=== PATIENT | female | born 1935 | race American Indian/Alaskan Native ===

== ENCOUNTER 2021-06-09 16:03 | Inpatient (IN) | payer OTHER, MEDICARE ==
[~2021-06-09 16:03] MED LIST: ATROPINE 0.1% (1 MG/10 ML) CARDIAC SYRINGE ONE; DOPamine DRIP 800 MG/D5W 250ML PreMix IV ONE; EPINEPHrine 1 MG/10 ML SYRINGE ONE; LIDOCAINE PF 100 MG/5 ML (CARDIAC SYRINGE) IV ONE; LIDOCAINE/D5W 2 GM/500 ML (0.4%) DRIP IV ONE; MAGNESIUM SULFATE 1 GM/2ML (4 MEQ/1ML) INJ ONE; SODIUM BICARB 8.4% 50 MEQ/50 ML SYRINGE IV ONE
[2021-06-09] MEDS ORDERED: NORepinephrine/NS 8 MG-250 ML 8 MG/250 ML INFUS..BTL IV ONE (16:30)
[2021-06-09] MEDS ORDERED: DOPamine 800 MG/D5W 250ML 800 MG/250 ML BAG IV ONE (16:43)
[2021-06-09] MEDS ORDERED: LIDOCAINE DRIP 2,000 MG/500 ML BAG IV ONE (16:44)
--- NOTE | 2021-06-09 16:52 | Emergency Department Report ---
HPI - General Time Seen by Provider: 06/09/21 16:41 - HPI HPI: Room 2 The patient is an 86-year-old female presenting with a chief complaint of cardiac arrest. Per EMS they received a call initially for the patient having fallen at home. EMS was called and arrived on scene to find the patient awake and bradycardic. While EMS was there at approximately 15:15 the patient became unresponsive. The patient was found to be pulseless and ACLS protocols were initiated. Monitor showed PEA. The patient was bagged via BVM and administered 1 round of epinephrine prior to arrival to the ED. Upon arrival to the ED the patient was intubated by myself using a 7.0 ET tube with a glide scope, ACLS protocols were continued with eventual return of spontaneous circulation ED Past Medical Hx - Past Medical History Hx Hypertension: Yes Hx Congestive Heart Failure: Yes Hx Diabetes: Yes - Family History Family history: no significant - Social History Smoking Status: Unknown if ever smoked - Medications Home Medications: Home Medications Medication Instructions Recorded Confirmed Last Taken Type FLUoxetine [PROzac] 20 mg PO QDAY 06/09/21 06/09/21 Unknown History Furosemide [Lasix] 40 mg PO DAILY 06/09/21 06/09/21 Unknown History Metformin HCl [metFORMIN] 1,000 mg PO BID 06/09/21 06/09/21 Unknown History Nitroglycerin [Nitrostat] 0.4 mg SL Q5M 06/09/21 06/09/21 Unknown History Potassium Citrate [Potassium 10 meq PO DAILY 06/09/21 06/09/21 Unknown History Citrate ER] traZODone [Desyrel] 50 mg PO BID 06/09/21 06/09/21 Unknown History ED Review of Systems ROS: Stated complaint: CARDIAC ARREST Other details as noted in HPI Comment: Unobtainable due to pts medical conditions Physical Exam - Physical Exam Physical Exam: GENERAL: The patient is well-developed well-nourished male lying on stretcher being bagged via BVM and receiving chest compressions from EMS. [] HEENT: Normocephalic. Atraumatic. NECK: Supple. Trachea midline CHEST/LUNGS: No spontaneous respirations. Breath sounds equal bilaterally after intubation by myself HEART/CARDIOVASCULAR: No heart sounds. Asystole on the monitor ABDOMEN: Abdomen is soft, nontender. Patient has normal bowel sounds. There is no abdominal distention. SKIN: There is no rash. There is no edema. There is no diaphoresis. NEURO: GCS 3 T MUSCULOSKELETAL:There is no evidence of acute injury. ED Course - Consultations Consultation #1: 06/09/21 17:54 Nephrology paged 06/09/21 18:32 Case discussed with basket assembler Dr. Mccloud - Central Line Placement Right Femoral Consent Obtained: emergent situation Time Out Performed: No Patient Placed on Monitor/Pulse Ox: No MD Prep: mask, gown, gloves Central Line Prep: Chlorhexidine scrub Local Anesthesia Used: Lidocaine 1% Amount of Anesthesia Used (mls): 5 Ultrasound Used for Placement: No Central Line Lumen Inserted: triple Reason for Insertion: High Alert Medication Bloods Obtained for Lab: No Central Line Position: good blood return, all ports aspirated, flus Dressing Applied: Tegaderm Patient Tolerated Procedure: no complications Complications: none - Intubation Sedative: none Laryngoscope: fiberoptic video scope Size: 3 Assist Device Used: fiberoptic device ET Tube Size: 7 Tube Secured Depth (cm): 21 Tube Secured Location: lips Tube Placement Confirmation: visualized tube passing t, equal breath sounds bilat, no breath sounds over epi, confirmation by capnometr Patient Tolerated Procedure: no complications Intubation Complications: none ED Medical Decision Making - Lab Data Result diagrams: 06/09/21 17:05 06/09/21 17:05 - Radiology Data Radiology results: image reviewed (Chest x-ray) interpreted by me: Chest x-ray-ET tube in appropriate position. Right upper lobe consolidation. - Differential Diagnosis Cardiac arrest Critical Care Time: Yes Critical care time in (mins) excluding proc time.: 30 Critical care attestation.: If time is entered above; I have spent that time in minutes in the direct care of this critically ill patient, excluding procedure time. ED Disposition Clinical Impression: Cardiac arrest, Hyperkalemia, Renal failure Disposition: 09 ADMITTED INPATIENT Is pt being admited?: Yes Does the pt Need Aspirin: No Condition: Serious Time of Disposition: 18:43 (Care transferred to hospitalist (Dr. Lockwood))
[2021-06-09] MEDS ORDERED: NORepinephrine/NS 8 MG-250 ML 8 MG/250 ML INFUS..BTL IV SCH (17:00)
[2021-06-09 17:20] LABS: Mean Corpuscular HGB Conc 30 % (30-34); Mean Corpuscular Volume 100 fl (79-97); Platelet Count 176 K/mm3 (140-440); Red Blood Count 3.81 M/mm3 (3.65-5.03); Red Cell Distribution Width 15.2 % (13.2-15.2)
[2021-06-09 17:37] LABS: ABG Base Excess -15.4 mmol/L (-2.0-3.0); ABG HCO3 16.8 mmol/L (20.0-26.0); ABG Methemoglobin 0.6 % (0.0-1.5); ABG Oxygen Saturation 98.7 % (95.0-99.0); ABG PO2 182.9 mm Hg (80.0-90.0)
[2021-06-09 17:37] LABS: INR 1.44 (0.87-1.13)
[2021-06-09 17:40] LABS: ABG PH 6.98 pH Units (7.350-7.450)
[2021-06-09 17:45] LABS: Creatine Kinase MB 11.1 ng/mL (0.0-4.0)
[2021-06-09 17:46] LABS: Alanine Aminotransferase 446 units/L (7-56); Albumin 3.4 g/dL (3.9-5); BUN/Creatinine Ratio 16; Blood Urea Nitrogen 36 mg/dL (7-17); Calcium 9.1 mg/dL (8.4-10.2); Hemolysis Index 31
[2021-06-09] MEDS ORDERED: SODIUM BICARB 8.4% 50 MEQ/50 ML SYRINGE IV ONE (17:49)
[2021-06-09] MEDS ORDERED: ALBUTEROL 2.5 MG/3 ML NEBU IH ONE (17:50)
[2021-06-09] MEDS ORDERED: CALCIUM GLUCONATE 1,000 MG in SODIUM CHLORIDE 0.9% 100 ML IV ONE (17:51)
[2021-06-09] MEDS ORDERED: DEXTROSE 50% IN WATER (25GM) 50 ML SYRINGE IV ONE (17:51)
[2021-06-09] MEDS ORDERED: INSULIN REGULAR, HUMAN 100 UNITS/1 ML IV ONE (17:51)
--- NOTE | 2021-06-09 18:17 | XRay Report ---
ABDOMEN 1 VIEW(S) INDICATION / CLINICAL INFORMATION: OG tube placement. COMPARISON: None available. FINDINGS: TUBES / LINES: NG tube in satisfactory position. BOWEL GAS PATTERN: No significant abnormality. ADDITIONAL FINDINGS: No significant additional findings. IMPRESSION: Satisfactory NG tube placement. Signer Name: Zan Crooks MD Signed: 06/09/2021 6:12 PM Workstation Name: [id number]
--- NOTE | 2021-06-09 18:18 | XRay Report ---
CHEST 1 VIEW 06/09/2021 5:47 PM INDICATION / CLINICAL INFORMATION: Status post cardiac arrest. COMPARISON: None available. FINDINGS: SUPPORT DEVICES: Endotracheal and esophagogastric tubes are in expected position. HEART / MEDIASTINUM: No significant abnormality. LUNGS / PLEURA: Moderate airspace disease in the right upper lobe. Small right apical pneumothorax me asuring 4 mm. ADDITIONAL FINDINGS: No significant additional findings. IMPRESSION: 1. Tubes and lines in expected position. 2. Right upper lobe opacity could represent pneumonia versus aspiration. 3. Tiny right apical pneumothorax. Signer Name: Esteban Hardy MD Signed: 06/09/2021 6:13 PM Workstation Name: [id number]
[2021-06-09 18:21] LABS: Hematocrit 38.1 % (30.3-42.9); Hemoglobin 11.4 gm/dl (10.1-14.3)
[2021-06-09] MEDS ORDERED: SODIUM POLYSTYRENE 15 GM/60 ML ORAL LIQD PO ONE (18:30)
[2021-06-09] MEDS ORDERED: VASOPRESSIN 20 UNIT in SODIUM CHLORIDE 0.9% 100 ML IV ONE (18:40)
[2021-06-09] MEDS ORDERED: cefTRIAXone/NS 1 GM/50 ML 1 GM/50 ML BAG IV ONE (18:47)
[2021-06-09 18:56] LABS: Chol/HDL Ratio 1.84 %
[2021-06-09] MEDS ORDERED: oxyCODONE /ACETAMINOPHEN 5-325MG TAB PO PRN (18:58)
[2021-06-09] MEDS ORDERED: ACETAMINOPHEN 650 MG RECT SUPP PR PRN (18:58)
[2021-06-09] MEDS ORDERED: MORPHINE 4 MG/1 ML INJ IV PRN (18:58)
[2021-06-09] MEDS ORDERED: ALBUTEROL 2.5 MG/3 ML NEBU IH PRN (18:58)
[2021-06-09] MEDS ORDERED: ACETAMINOPHEN 325 MG TAB PO PRN (19:00)
[2021-06-09] MEDS ORDERED: HYDROmorphone 1 MG/1 ML INJ IV PRN (19:00)
[2021-06-09] MEDS ORDERED: SODIUM CHLORIDE 0.9% 1000 ML IV SOLN IV ONE (19:00)
--- NOTE | 2021-06-09 19:03 | History and Physical Report ---
History of Present Illness Chief complaint: Cardiac arrest History of present illness: 86 YO Female with DM, HTN, Metabolic Syndrome, Obesity Hypoventilation Syndrome, CHF, Vascular Dementia, Cerebral Atherosclerosis, MO presents to ED for evaluation. Patient is intubated and ambulatory support at the time my evaluat ion is unable to provide history. History taken EMS staff, as well as ED staff. As per staff the patient experienced a cardiac arrest while at home. EMS was notified and upon arrival the patient was found to be in distress and subsequently transported to [facility] for further care and evaluation of the aforementioned symptoms. During transport the patient experienced cardiac arrest and was initiated on ACLS protocol and transferred to ED. Upon arrival to the ED please patient was found to be in cardiac arrest. The patient was treated" with ACLS protocol with eventual return of perfusing cardiac rhythm. Patient found to have acute hypoxemic respiratory failure. The patient was intubated and placed on ventilatory support. Patient also found to have severe sepsis, toxic metabolic encephalopathy, acute kidney injury, as well as suspected anoxic brain injury. Patient admitted to ICU due to increased risk of worsening symptoms. Critical care team consulted in ED. No reports of fever, c hills, chest pain, palpitation, productive cough, skin rash or recent contact, known exposure to COVID-19. No prior admission for review. All medication listed at time of admission has been reconciled. Advanced care planning conducted in ED. Patient found to have poor prognosis. Past History Past Medical History: diabetes, heart failure, hypertension Past Surgical History: No surgical history, Other (Reviewed) Social history: single. denies: smoking, alcohol abuse, prescription drug abuse Family history: diabetes, hypertension Medications and Allergies Allergies Allergy/AdvReac Type Severity Reaction Status Date / Time No Known Allergies Allergy Unverified 06/09/21 16:56 Home Medications Medication Instructions Recorded Confirmed Last Taken Type FLUoxetine [PROzac] 20 mg PO QDAY 06/09/21 06/09/21 Unknown History Furosemide [Lasix] 40 mg PO DAILY 06/09/21 06/09/21 Unknown History Metformin HCl [metFORMIN] 1,000 mg PO BID 06/09/21 06/09/21 Unknown History Nitroglycerin [Nitrostat] 0.4 mg SL Q5M 06/09/21 06/09/21 Unknown History Potassium Citrate [Potassium 10 meq PO DAILY 06/09/21 06/09/21 Unknown History Citrate ER] traZODone [Desyrel] 50 mg PO BID 06/09/21 06/09/21 Unknown History Active Meds: Active Medications NORepinephrine/NS 8 MG-250 ML (Norepinephrine/Ns 8 Mg-250 Ml (Double Conc)) 8 mg in 250 mls @ 56.25 mls/hr IV TITRATE JUAN; Protocol Last Titration: 06/09/21 18:18 Dose: 30 mcg/min, 56.25 mls/hr Lidocaine HCl/Dextrose (Xylocaine/D5w 2gm/500ml Drip) 2,000 mg in 500 mls @ 30 mls/hr IV DIRECT ONE; Protocol Stop: 06/10/21 09:23 Last Admin: 06/09/21 17:46 Dose: 2 mg/min, 30 mls/hr Vasopressin 20 unit/ Sodium (Chloride) 101 mls @ 9.09 mls/hr IV TITR ONE; Protocol Stop: 06/10/21 05:46 Review of Systems ROS unobtainable: due to endotracheal tube, due to mental status Exam - Constitutional Vitals: Temp Pulse Resp BP Pulse Ox 98.2 F 142 H 20 123/45 100 06/09/21 18:16 06/09/21 18:18 06/09/21 18:18 06/09/21 18:16 06/09/21 18:18 General appearance: Present: severe distress - EENT Eyes: Present: mydriasis ENT: hearing decreased - Neck Neck: Present: supple, normal ROM - Respiratory Respiratory effort: labored Respiratory: bilateral: diminished, rhonchi - Cardiovascular Heart Sounds: Present: S1 & S2. Absent: rub, click - Extremities Extremities: pulses symmetrical, No edema Peripheral Pulses: abnormal (Capillary refill greater than 3.5 seconds) - Abdominal General gastrointestinal: Present: soft, non-tender, non-distended - Integumentary Integumentary: Present: dry, clammy, decreased turgor - Musculoskeletal Musculoskeletal: generalized weakness - Psychiatric Psychiatric: no appropriate mood/affect, no intact judgment & insight, no memory intact - Neurologic Neurologic: CNII-XII intact, no gait normal HEART Score - HEART Score Troponin: Troponin T 0.385 ng/mL (0.00-0.029) H* 06/09/21 17:05 Troponin T TNR 06/09/21 17:05 Results - Labs CBC & Chem 7: 06/09/21 17:05 06/09/21 17:05 Labs: Abnormal lab results 06/09/21 06/09/21 06/09/21 Range/Units 17:05 17:05 17:05 WBC 17.0 H (4.5-11.0) K/mm3 MCV 100 H (79-97) fl PT 19.3 H (12.2-14.9) Sec. INR 1.44 H (0.87-1.13) APTT 67.0 H* (24.2-36.6) Sec. ABG pH (7.350-7.450) pH Units ABG pO2 (80.0-90.0) mm Hg ABG HCO3 (20.0-26.0) mmol/L ABG Base Excess (-2.0-3.0) mmol/L Potassium (3.6-5.0) mmol/L Carbon Dioxide (22-30) mmol/L BUN (7-17) mg/dL Creatinine (0.6-1.2) mg/dL Glucose (65-100) mg/dL Lactic Acid (0.7-2.0) mmol/L AST (5-40) units/L ALT (7-56) units/L Alkaline Phosphatase (35-129) units/L Total Creatine Kinase (30-135) units/L CK-MB (CK-2) (0.0-4.0) ng/mL CK-MB (CK-2) Rel Index (0-4) Troponin T 0.385 H* (0.00-0.029) ng/mL NT-Pro-B Natriuret Pep (0-900) pg/mL Total Protein (6.3-8.2) g/dL Albumin (3.9-5) g/dL LDL Cholesterol Direct 26 L (50-130) mg/dL Lipase (13-60) units/L 06/09/21 06/09/21 06/09/21 Range/Units 17:05 17:05 17:30 WBC (4.5-11.0) K/mm3 MCV (79-97) fl PT (12.2-14.9) Sec. INR (0.87-1.13) APTT (24.2-36.6) Sec. ABG pH 6.980 L* (7.350-7.450) pH Units ABG pO2 182.9 H (80.0-90.0) mm Hg ABG HCO3 16.8 L (20.0-26.0) mmol/L ABG Base Excess -15.4 L (-2.0-3.0) mmol/L Potassium 6.3 H* (3.6-5.0) mmol/L Carbon Dioxide 13 L (22-30) mmol/L BUN 36 H (7-17) mg/dL Creatinine 2.2 H (0.6-1.2) mg/dL Glucose 419 H (65-100) mg/dL Lactic Acid 12.30 H* (0.7-2.0) mmol/L AST 527 H (5-40) units/L ALT 446 H (7-56) units/L Alkaline Phosphatase 139 H (35-129) units/L Total Creatine Kinase 198 H (30-135) units/L CK-MB (CK-2) 11.1 H (0.0-4.0) ng/mL CK-MB (CK-2) Rel Index 5.6 H (0-4) Troponin T (0.00-0.029) ng/mL NT-Pro-B Natriuret Pep 6606 H (0-900) pg/mL Total Protein 6.2 L (6.3-8.2) g/dL Albumin 3.4 L (3.9-5) g/dL LDL Cholesterol Direct (50-130) mg/dL Lipase 61 H (13-60) units/L Assessment and Plan - Patient Problems (1) Septic shock Current Visit: Yes Status: Acute Plan to address problem: Sepsis protocol: Patient ADMITTED to ICU, IV fluid resuscitation therapy, IV antibiotic therapy, chest x-ray, urinalysis, supplemental oxygen, pulse oximetry, serial lactic acid level, blood culture, IV pressor support, maintain mean arterial pressure greater than equal to 65, monitor fluid balance, monitor urine output every shift. The high probability of a clinically significant, sudden or life threatening deterioration of the [cardiac, pulmonary, neuro, renal, infectious disease, endocrine] system(s) required my full and direct attention, intervention and personal management. The aggregate critical care time was [95] minutes. This time is in addition to time spent performing reported procedures but includes the following: [X] Data Review and interpretation [X] Patient assessment and monitoring of vital signs [X] Documentation [X] Medication orders and management (2) Cardiac arrest Current Visit: Yes Status: Acute Plan to address problem: Patient treated in accordance with ACLS protocol with eventual return of perfusing cardiac rhythm. Echocardiogram ordered and pending at time of admission. Continue IV pressor support. (3) Acute hypoxemic respiratory failure Current Visit: Yes Status: Acute Plan to address problem: Patient intubated and on ventilatory support, wean vent as tolerated, daily sedation holiday, daily spontaneous breathing trial, daily arterial blood gas, supportive care. Critical care team consulted. (4) Anoxic brain injury Current Visit: Yes Status: Acute Plan to address problem: Supportive care, CT scan head when medically stable for transport. Supportive care, neurochecks. (5) Obesity hypoventilation syndrome Current Visit: Yes Status: Acute Plan to address problem: Balanced diet, increase physical activity discharge, outpatient pulmonary follow-up for sleep study. (6) Metabolic syndrome Current Visit: Yes Status: Acute Plan to address problem: Low-cholesterol diet, risk factor reduction, supportive care, blood glucose control, blood pressure control, increase physical activity at discharge. (7) Hypertension Current Visit: Yes Status: Acute Qualifiers: Hypertension type: primary hypertension Qualified Code(s): I10 - Essential (primary) hypertension Plan to address problem: Monitor blood pressure every shift. Patient is currently hypotensive and on pressor support at this time. Hold antihypertensive therapy at this time. (8) Diabetes Current Visit: Yes Status: Acute Plan to address problem: Consistent carbohydrate diet, Accu-Chek, insulin protocol when alert and with only. (9) Acute kidney injury (HUSSAIN) with acute tubular necrosis (ATN) Current Visit: Yes Status: Acute Plan to address problem: Nephrology team consulted in ED, strict I's/O, Q shift, IV pressor support, IV fluid resuscitation therapy, repeat BMP in a.m. to monitor serum creatinine as well as GFR. (10) Toxic metabolic encephalopathy Current Visit: Yes Status: Acute Plan to address problem: Supportive care, treat sepsis, (11) DVT prophylaxis Current Visit: Yes Status: Acute Plan to address problem: SCD to bilateral lower extremities while in bed (12) Advance care planning Current Visit: Yes Status: Acute Plan to address problem: Disease education conducted, care plan discussed, diagnoses discussed, prognosis discussed, patient is full code. +30 minutes.
[2021-06-09] MEDS: AZITHROMYCIN/NS 500 MG/250 ML 500 MG/250 ML BAG IV ONE ×2 (19:07→19:47)
[2021-06-09 19:27] LABS: Bacteria,Urine 2+ /HPF (Negative); Bilirubin,Urine NEG (Negative); Blood,Urine LG (Negative); Color,Urine Red (Yellow); Mucus,Urine FEW /HPF; Urobilinogen,Urine < 2.0 mg/dL (<2.0)
[2021-06-09 19:44] LABS: Protein,Urine <15 mg/dL mg/dL (Negative); RBC,Urine < 1.0 /HPF (0.0-6.0)
[2021-06-09 21:06] LABS: Free T4 (Free Thyroxine) 1.27 ng/dL (0.76-1.46)
[2021-06-09 21:25] LABS: Anisocytosis RARE; Basophils % (Manual) 0 % (0.0-1.8); Hypochromasia Rare; Total Cells Counted 100
--- NOTE | 2021-06-09 23:10 | Cat Scan Report ---
CT HEAD WITHOUT CONTRAST INDICATION / CLINICAL INFORMATION: Status postcardiac arrest, history of fall. TECHNIQUE: CT head was performed without administration of intravenous contrast. All CT scans at this location are performed using CT dose reduction for ALARA by means of automated exposure control. COMPARISON: None available. FINDINGS: CEREBRAL PARENCHYMA: Diffusely abnormal pickering-white matter differentiation suggesting pseudonormalizat ion. A large region of hypoattenuation is noted bilaterally within the posterior temporal cortex as w ell as within the anterior frontal lobes. HEMORRHAGE: None. EXTRA-AXIAL SPACES: Mild effacement of the temporal and parietal sulci is suggested. VENTRICULAR SYSTEM: Normal in size and morphology for the patient's age. MIDLINE SHIFT / HERNIATION: None. CEREBELLUM / BRAINSTEM: Diffuse hypoattenuation and effacement of the cerebellar folds. ORBITS: No significant abnormality. SOFT TISSUES: No significant abnormality. SKULL: No significant abnormality. PARANASAL SINUSES / MASTOID AIR CELLS: Normal as visualized. ADDITIONAL FINDINGS: None. IMPRESSION: 1. Appearance of the brain is most suggestive of sequelae of diffuse hypoxia with probable diffuse re gions of cerebral and cerebellar infarction. Signer Name: Ricky Smith II, MD Signed: 06/09/2021 11:06 PM Workstation Name: [id number]
--- NOTE | 2021-06-10 00:42 | Procedure Note ---
- Central Line Placement Right SC Consent Obtained: emergent situation Time Out Performed: Yes Patient Placed on Monitor/Pulse Ox: Yes MD Prep: mask, gown, gloves Central Line Prep: Povidone-Iodine 1%, Chlorhexidine scrub, sterile drapes applied Local Anesthesia Used: Lidocaine 1% Amount of Anesthesia Used (mls): 15 Ultrasound Used for Placement: Yes Central Line Lumen Inserted: triple Reason for Insertion: Emergency Venous Access Bloods Obtained for Lab: Yes Central Line Position: good blood return, all ports aspirated, flus, sutured in place with 2-0 Dressing Applied: Tegaderm Post Procedure X-Ray: tip of catheter in good p Patient Tolerated Procedure: well, no complications Complications: none
--- NOTE | 2021-06-10 00:47 | Event Note ---
Date: 06/10/21 I was called to the ICU needing central line placement on a cardiac arrest patient-- patient had right femoral line but was noticed to be pulsatile and suspected to be in the artery. While i was working to place the right subclavian central line patient lost her pulse and coded. CPR started immediately and was given 1 episode of epi with ROSC at the next rhythm check. I was able to continue and completed the right subclavian central line placement. Please the the code chart for details.
--- NOTE | 2021-06-10 01:17 | XRay Report ---
CHEST 1 VIEW INDICATION / CLINICAL INFORMATION: CVL verification. COMPARISON: Chest x-ray 06/09/2021 FINDINGS: SUPPORT DEVICES: Endotracheal tube terminates at the chuck tip minimally engaging the right main bro nchus. Interval placement of right IJ central venous catheter tip in the superior vena cava. Esophago gastric tube in fundus. Defibrillator pads remain present. HEART / MEDIASTINUM: No significant interval change. LUNGS / PLEURA: Previously demonstrated small right apical pneumothorax not well visualized. Signific ant worsening of bilateral now confluent airspace opacities. BONES: No significant osseous abnormality. ADDITIONAL FINDINGS: No significant additional findings. IMPRESSION: 1. Significant worsening of confluent bilateral airspace opacities suggesting pulmonary edema. 2. The previously demonstrated small right apical pneumothorax not well visualized. 3. Interval addition of a right subclavian central venous catheter tip within the superior vena cava. 4. Tip of the endotracheal tube at the chuck possibly minimally within right main bronchus. Retracti on by 2 cm could be considered for optimal positioning. Signer Name: Ricky Smith II, MD Signed: 06/10/2021 1:12 AM Workstation Name: [id number]
--- NOTE | 2021-06-10 01:36 | Event Note ---
Date: 06/10/21 ANGEL BALDWIN called on 86-year-old -Luxembourger female who had been admitted for septic shock and cardiac arrest earlier today. Resuscitative measures were commenced according to ACLS protocol. All resuscitative measures proved futile. ANGEL BALDWIN had been called on patient on multiple occasions earlier today. Upon exam, pupils were fixed and dilated No response to verbal or deep sternal rub. Chest: No breath sounds Cardiovascular exam: No heart sounds and no peripheral pulses Abdomen: mildly distended.soft. Extremities: Cold and clammy: 3+ bilateral lower extremity edema Central nervous system: No reflexes Patient pronounced at 00: 53 AM on June 10, 2021. Family to be immediately notified.
[2021-06-10 01:43] VITALS: BP 170/78
[2021-06-10] MEDS ORDERED: FLUoxetine 20 MG CAP PO SCH (10:00)
--- NOTE | 2021-06-12 14:03 | Electrocardiograph Report ---
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
--- NOTE | 2021-06-12 14:04 | Electrocardiograph Report ---
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
== END 2021-06-10 03:05 | DRG 871 ==
LOC: ED 16:03 → CC1 18:58
PROVIDERS: ADMIT Internal Medicine; ATTEND Internal Medicine
PROC: 06HM33Z Insertion of Infusion Device into Right Femoral Vein, Percutaneous Approach (ICD-10-PCS; principal; 2021-06-09)
PROC: 5A1935Z Respiratory Ventilation, Less than 24 Consecutive Hours (ICD-10-PCS; 2021-06-09)
PROC: 0BH17EZ Insertion of Endotracheal Airway into Trachea, Via Natural or Artificial Opening (ICD-10-PCS; 2021-06-09)
PROC: 4A033R1 Measurement of Arterial Saturation, Peripheral, Percutaneous Approach (ICD-10-PCS; 2021-06-09)
PROC: 02HV33Z Insertion of Infusion Device into Superior Vena Cava, Percutaneous Approach (ICD-10-PCS; 2021-06-10)
PROC: B548ZZA Ultrasonography of Superior Vena Cava, Guidance (ICD-10-PCS; 2021-06-10)
PROC: 5A12012 Performance of Cardiac Output, Single, Manual (ICD-10-PCS; 2021-06-10)
DX: A41.9 Sepsis, unspecified organism (principal); R65.21 Severe sepsis with septic shock; J96.01 Acute respiratory failure with hypoxia; N17.0 Acute kidney failure with tubular necrosis; G92.8 Other toxic encephalopathy; G93.1 Anoxic brain damage, not elsewhere classified; E66.2 Morbid (severe) obesity with alveolar hypoventilation; I46.9 Cardiac arrest, cause unspecified; I11.0 Hypertensive heart disease with heart failure; I50.9 Heart failure, unspecified; E11.9 Type 2 diabetes mellitus without complications; E87.5 Hyperkalemia; Z83.3 Family history of diabetes mellitus; Z82.49 Family history of ischemic heart disease and other diseases of the circulatory system; Z68.23 Body mass index [BMI] 23.0-23.9, adult
CPT/HCPCS: 36415; 70450; 71045; 74018; 80053; 80061; 81001; 82140; 82550; 82553; 82803; 82962; 83690; 83880; 84132; 84439; 84443; 84484; 85007; 85025; 85610; 85730; 86850; 86900; 86901; 87040; 87086; 92950; 93005; 94002; 94644; G0378; J2354; J3490; Q0162; Q9967; J0171; J0456; J0461; J0610; J0696; J1265; J1815; J1956; J2001; J3475; J7030